=== PATIENT | female | born 1975 | race Caucasian/White ===

== ENCOUNTER 2022-02-10 09:52 | Outpatient (CLI) | payer OTHER, SELFPAY ==
[2022-02-10 13:50] LABS: Chloride* 104 mmol/L (96-114); Potassium* 4.3 mmol/L (3.6-5.1); Sodium* 138 mmol/L (135-149)
[2022-02-10 13:52] LABS: Creatinine* 0.7 mg/dL (0.5-1.5); Estimated Glomerular Filt Rate 107.95
[2022-02-10 13:53] LABS: Blood Urea Nitrogen* 15 mg/dL (5-24); Calcium* 8.9 mg/dL (8.4-10.6); Carbon Dioxide* 28 mmol/L (20-32); Glucose* 94 mg/dL (60-115)
== END 2022-02-10 09:53 | disposition home or self-care (01) ==
LOC: LKVREF 09:52
PROVIDERS: PCP Emergency Medicine; Visit Provider Emergency Medicine
DX: I10 Essential (primary) hypertension (principal); E78.5 Hyperlipidemia, unspecified; F32.A Depression, unspecified; F41.9 Anxiety disorder, unspecified
CPT/HCPCS: 80048

== ENCOUNTER 2022-05-10 09:30 | Outpatient (CLI) | payer OTHER, SELFPAY ==
[2022-05-10 13:46] LABS: Chloride* 103 mmol/L (96-114); Potassium* 4.8 mmol/L (3.6-5.1); Sodium* 138 mmol/L (135-149)
[2022-05-10 13:48] LABS: Cholesterol* 155 mg/dL (90-199)
[2022-05-10 13:49] LABS: Blood Urea Nitrogen* 13 mg/dL (5-24); Calcium* 9.2 mg/dL (8.4-10.6); Carbon Dioxide* 27 mmol/L (20-32); Creatinine* 0.7 mg/dL (0.5-1.5); Estimated Glomerular Filt Rate 107 ml/min; Glucose* 86 mg/dL (60-115); HDL Cholesterol* 46 mg/dL (>=50); LDL Cholesterol Calculated 92 mg/dL (<100); Triglycerides* 87 mg/dL (40-149)
== END 2022-05-10 09:31 | disposition home or self-care (01) ==
PROVIDERS: PCP Emergency Medicine; Visit Provider Emergency Medicine
DX: I10 Essential (primary) hypertension (principal); E78.5 Hyperlipidemia, unspecified
CPT/HCPCS: 80048; 80061

== ENCOUNTER 2023-03-30 09:09 | Outpatient (CLI) | payer OTHER, SELFPAY | END 2023-03-30 09:10 | disposition home or self-care (01) | LOC: LKVREF 09:09 | PROVIDERS: PCP Emergency Medicine; Visit Provider Emergency Medicine | DX: Z00.00 Encounter for general adult medical examination without abnormal findings (principal); R53.83 Other fatigue; I10 Essential (primary) hypertension | CPT/HCPCS: 84443 ==

== ENCOUNTER 2023-04-27 08:12 | Outpatient (CLI) | payer OTHER, SELFPAY | END 2023-04-27 08:13 | disposition home or self-care (01) | PROVIDERS: PCP Emergency Medicine; Visit Provider Emergency Medicine | DX: E78.5 Hyperlipidemia, unspecified (principal); I10 Essential (primary) hypertension; R79.89 Other specified abnormal findings of blood chemistry; R03.0 Elevated blood-pressure reading, without diagnosis of hypertension; R53.83 Other fatigue | CPT/HCPCS: 80048; 80053; 80061; 82306 ==

== ENCOUNTER 2023-05-03 13:53 | Outpatient (CLI) | payer OTHER, SELFPAY ==
--- NOTE | 2023-05-03 14:00 | CRLHL7_ITS ---
For Patients: As a result of the Century Cures Act, medical imaging exams and procedure reports are released immediately into your electronic medical record. You may view this report before your referring provider. If you have questions, please contact your health care provider. BILATERAL SCREENING MAMMOGRAM WITH COMPUTER-AIDED DETECTION TECHNIQUE: CC and MLO views were obtained. These mammographic images have been obtained using full-field digital technique. These mammographic images were interpreted with the benefit of computer-aided detection. COMPARISON FILM: 10/05/21, 05/01/19, 06/17/17. FINDINGS: There are scattered areas of fibroglandular density IMPRESSION: There is no radiographic evidence for malignancy. ASSESSMENT: BI-RADS Category 1: Negative RECOMMENDATION: Routine screening mammogram in 1 year. A lay language report of this examination will be provided to the patient. Bobby Eduardo M.D. Diagnostic Radiologist [email or web address] ALIDA/Dictated by: Bobby Eduardo MD @ 05/04/2023 10:10:00 AM (Electronically Signed)
== END 2023-05-03 13:54 | disposition home or self-care (01) ==
LOC: MAMMO 13:54
PROVIDERS: PCP Emergency Medicine; Visit Provider Emergency Medicine
DX: Z12.31 Encounter for screening mammogram for malignant neoplasm of breast (principal)
CPT/HCPCS: 77063; 77067

== ENCOUNTER 2023-07-28 09:59 | Outpatient (CLI) | payer OTHER, SELFPAY | END 2023-07-28 10:00 | disposition home or self-care (01) | LOC: NFLDREF 07-29 07:03 | PROVIDERS: PCP Emergency Medicine; Referring Provider Emergency Medicine; Visit Provider Emergency Medicine | DX: E78.5 Hyperlipidemia, unspecified (principal) | CPT/HCPCS: 80053 ==

== ENCOUNTER 2024-04-24 15:21 | Outpatient (CLI) | payer OTHER, SELFPAY | END 2024-04-24 15:22 | disposition home or self-care (01) | LOC: NFLDREF 04-28 18:49 | PROVIDERS: PCP Emergency Medicine; Referring Provider Emergency Medicine; Visit Provider Emergency Medicine | DX: I10 Essential (primary) hypertension (principal) | CPT/HCPCS: 80048 ==

== ENCOUNTER 2024-05-14 08:49 | Outpatient (CLI) | payer OTHER, SELFPAY ==
--- NOTE | 2024-05-14 10:09 | W.ANESCHARGE ---
Anesthesia Charges Start Date/Time Anesthesia Start Date: 05/14/24 Anesthesia Start Time: 10:09 Stop Date/Time Anesthesia Stop Date: 05/14/24 Anesthesia Stop Time: 10:44
--- NOTE | 2024-05-14 10:47 | W.ANESCHARGE ---
Anesthesia Charges Start Date/Time Anesthesia Start Date: 05/14/24 Anesthesia Start Time: 10:09 Stop Date/Time Anesthesia Stop Date: 05/14/24 Anesthesia Stop Time: 10:44
== END 2024-05-14 08:50 | disposition home or self-care (01) ==
LOC: OP CLINIC 08:51
PROVIDERS: PCP Emergency Medicine; Visit Provider Surgery
DX: Z12.11 Encounter for screening for malignant neoplasm of colon (principal); D12.3 Benign neoplasm of transverse colon; D12.8 Benign neoplasm of rectum; Z86.0100 Personal history of colon polyps, unspecified; Z86.0101 Personal history of adenomatous and serrated colon polyps
CPT/HCPCS: 00811; 45385; 88305; J2704

== ENCOUNTER 2024-05-24 12:57 | Emergency (ER) | payer OTHER, SELFPAY ==
[2024-05-24 13:00] VITALS: BP 124/79; PULSE 53; RESP 18; TEMP 36.1; O2SAT 100; BMI 31.8
--- NOTE | 2024-05-24 13:28 | ED_ITS ---
HPI - General Adult General Date Seen: 05/24/24 Chief complaint: Shoulder Injury/Pain Stated complaint: fell at work, right arm injury Time Seen by Provider: 05/24/24 13:27 History of Present Illness HPI narrative: This is a pleasant 49-year-old female presenting to the ER today for evaluation of a work related right shoulder/arm injury. She has a past medical history of hypertension, dyslipidemia, depression, tobacco use. She is not on any anticoagulant. She was at work today in the bathroom and slipped on a wet floor. She fell and tried to catch herself. She reached out with her right arm and tried to grab onto a cabinet. Her right arm held her up until it could anymore. She felt a pop in her shoulder and felt her arm bone seem to move upward. She fell to the floor. She also scraped her right knee when she fell but does not think it is broken. She has been able to bend and straighten has been able walk on her knee right knee without any pain. She did not hit her head. No loss of consciousness. No neck Pain. She is having significant pain in her right shoulder does not able move her arm because of the discomfort. No numbness or tingling in her right arm. No other injury. No chest pain or back pain. No left upper extremity injury. Hips are not injured. Related Data Home Medications ?Medication ?Instructions ?Recorded ?Confirmed cholecalciferol (vitamin D3) 25 5,000 unit PO DAILY 03/30/23 05/24/24 mcg (1,000 unit) tablet Previous Rx's ?Medication ?Instructions ?Recorded rosuvastatin 20 mg tablet 20 mg PO DAILY #90 tabs 03/30/23 sertraline 100 mg tablet 150 mg (1.5 x 100 mg) PO DAILY 04/27/23 #135 tabs losartan 50 mg tablet 50 mg PO QDAY #90 tabs 04/24/24 valacyclovir 500 mg tablet 500 mg PO QDAY #90 ea 05/04/24 hydrocodone 5 mg-acetaminophen 325 1 - 2 tab PO Q4-6H PRN pain #20 05/24/24 mg tablet tabs ondansetron HCl 4 mg tablet 4 mg PO TID PRN nausea and 05/24/24 vomiting #10 tabs Allergies Allergy/AdvReac Type Severity Reaction Status Date / Time bupropion Allergy Severe Suicidal Verified 05/24/24 13:06 thoughts [facility] Medical History (Updated 05/24/24 @ 14:56 by Lucas Cardenas MD) Pre-op exam ?Z01.818 - Encounter for other preprocedural examination (ICD-10) Atypical mole ?D22.9 - Melanocytic nevi, unspecified (ICD-10) Hyperkalemia ?E87.5 - Hyperkalemia (ICD-10) Snoring ?R06.83 - Snoring (ICD-10) Lesion of face ?L98.9 - Disorder of the skin and subcutaneous tissue, unspecified (ICD-10) Noncompliance w/medication treatment due to intermit use of medication ?Z91.148 - Patient's other noncompliance with medication regimen for other reason (ICD-10) Fatigue ?R53.83 - Other fatigue (ICD-10) Encounter for preventive health examination ?Z00.00 - Encounter for general adult medical examination without abnormal findings (ICD-10) Family History (Updated 03/30/23 @ 08:54 by Toya Kc MD) Paternal Grandmother Colon cancer Father High blood pressure Social History (Updated 02/09/22 @ 08:26 by Sukhi Roach) Narrative: Occasional cigarette smoker Smoking Status: Current some day smoker How often do you have a drink containing alcohol: 2-4 times a month AUDIT-C Alcohol total score: 2 Non-prescribed substance use: denies use Little interest or pleasure in doing things: several days Feeling down, depressed, or hopeless: several days Exam Narrative: Exam Narrative: Constitutional: Appears well-developed and well-nourished. Alert. Conversant but uncomfortable. Non toxic. HENT: Head: Atraumatic. No depressed skull fracture, Raccoon Eyes, Reed's sign. Face normal. Nose: Nose normal. Mouth/Throat: Oral mucosa is clear and moist. no trismus. Pharynx normal. Tonsils symmetric. No tonsillar enlargement, erythema, or exudate. Eyes: Conjunctivae normal. EOM normal. Pupils equal, round, and reactive to light. No scleral icterus. Neck: Normal range of motion. Neck supple. No tracheal deviation present. Cardiovascular: Normal rate, regular rhythm. No gallop. No friction rub. No murmur heard. Symmetric radial artery pulses Pulmonary/Chest: Effort normal. No stridor. No respiratory distress. No wheezes. No rales. No rhonchi . No tenderness. Abdominal: Soft. Bowel sounds normal. No distension. No mass. No tenderness. No rebound. No guarding. Musculoskeletal: RUE: Very tender diffusely on the right shoulder. Possible fullness or swelling around the humeral head or possible anterior glenohumeral joint dislocation. Difficult to discern by clinical exam alone. Also tender over the distal clavicle without any obvious deformity or crepitus there. Humeral shaft, biceps, triceps, distal humerus are nontender. Elbow nontender. Range of motion of the elbow is limited by shoulder pain. Forearm, wrist, hand, fingers, thumb are nontender. Intact axillary, radial, median, ulnar nerve sensory function. Axillary motor testing is limited by her shoulder pain. LUE: Normal range of motion. No tenderness. No deformity RLE: Normal range of motion. No edema. No tenderness. No deformity. Superficial 2 cm abrasion over the right anterior distal knee. No underlying bony tenderness. Patient does not think her knee is broken. LLE: Normal range of motion. No edema. No tenderness. No deformity Neurological: Alert and oriented to person, place, and time. Normal strength. CN II-VII intact. No sensory deficit. GCS eye subscore is 4. GCS verbal subscore is 5. GCS motor subscore is 6. Normal coordination Skin: Skin is warm and dry. No rash noted. No pallor. Normal capillary refill. Psychiatric: Normal mood. Normal affect. Const: Vital Signs, click to edit/add: Vital Signs - 24 hr 05/24/24 13:00 05/24/24 14:17 05/24/24 14:30 Temperature 97 F L Pulse Rate 56 L 52 L Pulse Rate [Right Pulse Oximeter] 53 L Respiratory Rate 18 Blood Pressure [Le ft Upper Arm] 124/79 Pulse Oximetry 100 96 92 Oxygen Delivery Me thod Room Air 05/24/24 14:45 05/24/24 15:00 Temperature Pulse Rate 50 L 53 L Pulse Rate [Right Pulse Oximeter] Respiratory Rate Blood Pressure [Le ft Upper Arm] Pulse Oximetry 94 97 Oxygen Delivery Me thod Course Vital Signs Vital signs: Initial Vital Signs Temperature 97 F L 05/24/24 13:00 Temperature Source Temporal Artery Scan 05/24/24 13:00 Pulse Rate 53 L 05/24/24 13:00 Pulse Rhythm Regular 05/24/24 13:00 Pulse Strength 3+ Normal 05/24/24 13:00 Respiratory Rate 18 05/24/24 13:00 Blood Pressure 124/79 05/24/24 13:00 Blood Pressure Mean 94 05/24/24 13:00 Blood Pressure Position Sitting 05/24/24 13:00 Pulse Oximetry 100 05/24/24 13:00 Oxygen Delivery Method Room Air 05/24/24 13:00 Vital Signs Temperature 97 F L 05/24/24 13:00 Pulse Rate 53 L 05/24/24 13:00 Respiratory Rate 18 05/24/24 13:00 Blood Pressure 124/79 05/24/24 13:00 Pulse Oximetry 100 05/24/24 13:00 Oxygen Delivery Method Room Air 05/24/24 13:00 Temperature 97 F L 05/24/24 13:00 Pulse Rate 53 L 05/24/24 15:00 Respiratory Rate 18 05/24/24 13:00 Blood Pressure 124/79 05/24/24 13:00 Pulse Oximetry 97 05/24/24 15:00 Oxygen Delivery Method Room Air 05/24/24 13:00 Medications Administered Medications: Discontinued Medications Generic Name Dose Route Start Last Admin Trade Name Freq PRN Reason Stop Dose Admin Hydromorphone HCl 1 mg 05/24/24 13:35 05/24/24 14:08 Hydromorphone 0.5 Mg/0.5 Ml Inj IM 05/24/24 13:36 1 mg ONCE ONE Administration Ondansetron HCl 4 mg 05/24/24 13:35 05/24/24 14:07 Ondansetron 2 Mg/Ml Inj IM 05/24/24 13:36 4 mg ONCE ONE Administration Medical Decision Making MDM Narrative Medical decision making narrative: 49-year-old female presenting to the ER today with her [id number] for evaluation of severe right shoulder pain after she slipped and fell on a wet bathroom floor at work. She did injure her right shoulder but did not hit her head or injure her neck. At this point I do not think she needs head or C-spine imaging. No evidence for torso or abdominal injury. She has a tiny abrasion on her right anterior knee but no evidence for fracture of her lower extremities and would not have come to the ER if her knee abrasion were her only injury from this fall. Differential for her right shoulder injury includes proximal humerus fracture, glenohumeral joint dislocation, glenoid fossa fracture, AC joint injury, distal clavicle fracture, among others. X-rays are obtained and do reveal evidence for a nondisplaced fracture through the proximal humerus, specifically through the tuberosity of the humerus. Fortunately she is neurovascularly intact. Pain is tolerable E controlled after intramuscular Dilaudid given here in the ER Patient is placed into a sling to prescription for [place] that she can use as needed at home. Zofran for opiate induced nausea. Reviewed opiate precautions. She will follow-up with orthopedics for recheck within the next 3-5 days for re- evaluation. Discussed sling during the day, gentle range of motion to avoid frozen shoulder. Discussed fracture care and ice, elevation, rest. Patient understands the need for or patient follow-up and the anticipated course that will take a couple of months to heal and likely will require therapy. Hopefully can avoid surgery Precautions for return to the ER reviewed Imaging Data xr right shoulder: Attestation: I have reviewed the pertinent imaging results. My impression: Suspect fracture through the greater tuberosity. No obvious displacement. No glenohumeral joint dislocation. Radiologist's impression: IMPRESSION: Nondisplaced fracture of the greater tuberosity of the right humerus. Discharge Plan Discharge Clinical Impression: Closed fracture of greater tuberosity of humerus Patient Disposition: Home, Self-Care Condition: Stable Instructions: Proximal Humerus Fracture (ED) Additional Instructions: As we discussed, your x-ray shows a fracture through the top end of her humerus bone in your right shoulder. To manage her pain, use ice for 15 minutes every 3-4 hours on your shoulder. Keep your arm in the sling when you are up and around. However, it is important to take the sling off 1 or 2 times per day and perform gentle, small motions with her shoulder. This helps prevent shoulder stiffness and development of ?frozen shoulder. ? You can use [id number]-[id number] medications such as Tylenol or ibuprofen for pain control. If you have pain uncontrolled by those meds, use the prescription pain killers (hydrocodone). Be careful with hydrocodone because it does have side effects-dizziness, drowsiness, constipation, and can be addictive. Do not drive for 6 hours after taking hydrocodone. It is very important for you to follow-up with orthopedics for recheck next week. You can call the [facility] [phone] to arrange an ER follow-up visit for next Tuesday or Tuesday. If you have any concerns especially uncontrolled pain, numbness or weakness down your arm, or any other problems, come back to the emergency room right away. Prescriptions: New ondansetron HCl 4 mg tablet 4 mg PO TID PRN (Reason: nausea and vomiting) Qty: 10 0RF hydrocodone-acetaminophen 5-325 mg tablet 1 - 2 tab PO Q4-6H PRN (Reason: pain) Qty: 20 0RF No Action sertraline 100 mg tablet 150 mg PO DAILY Qty: 135 2RF cholecalciferol (vitamin D3) 25 mcg (1,000 unit) tablet 5,000 unit PO DAILY Rx Instructions: 5000 iu each tab takes 1 tab in the summer rosuvastatin 20 mg tablet 20 mg PO DAILY Qty: 90 3RF losartan 50 mg tablet 50 mg PO QDAY Qty: 90 3RF valacyclovir 500 mg tablet 500 mg PO QDAY Qty: 90 0RF Follow Up/Referrals: Toya Kc MD [Primary Care Provider] - Stand Alone Forms: ReviewPro Info Instructions
--- NOTE | 2024-05-24 13:35 | CRLHL7_ITS ---
For Patients: As a result of the Cures Act, medical imaging exams and procedure reports are released immediately into your electronic medical record. You may view this report before your referring provider. If you have questions, please contact your health care provider. INDICATION: Posttraumatic pain. COMPARISON: None available. TECHNIQUE: Views: 3 FINDINGS: Mineralization: Normal. Alignment: Normal. Bones and Joints: Nondisplaced fracture of the greater tuberosity of the right humerus. Soft Tissues: Unremarkable. IMPRESSION: Nondisplaced fracture of the greater tuberosity of the right humerus. Dictated by Ervin Carmona MD @ 05/24/2024 2:05:32 PM (Electronically Signed)
[2024-05-24] MEDS: ONDANSETRON 2 MG/ML inj 4 MG IM (14:07)
[2024-05-24] MEDS: HYDROmorphone 0.5 mg/0.5 ml inj 1 MG IM (14:08)
[2024-05-24 14:17] VITALS: PULSE 56; O2SAT 96
[2024-05-24 14:30] VITALS: PULSE 52; O2SAT 92
[2024-05-24 14:45] VITALS: PULSE 50; O2SAT 94
[2024-05-24 15:00] VITALS: PULSE 53; O2SAT 97
== END 2024-05-24 15:20 | disposition home or self-care (01) ==
PROVIDERS: Emergency Provider Emergency Medicine; PCP Emergency Medicine
DX: S42.251A Displaced fracture of greater tuberosity of right humerus, initial encounter for closed fracture (principal); W01.0XXA Fall on same level from slipping, tripping and stumbling without subsequent striking against object, initial encounter
CPT/HCPCS: 73030; 94761; 96372; 99282; 99284; J1171; J2405

== ENCOUNTER 2024-08-16 09:13 | Outpatient (CLI) | payer OTHER, SELFPAY | END 2024-08-16 09:14 | disposition home or self-care (01) | LOC: NFLDREF 08-29 04:11 | PROVIDERS: PCP Emergency Medicine; Referring Provider Emergency Medicine; Visit Provider Emergency Medicine | DX: R79.89 Other specified abnormal findings of blood chemistry (principal); E78.2 Mixed hyperlipidemia; I10 Essential (primary) hypertension | CPT/HCPCS: 80048; 80061; 82306 ==

== ENCOUNTER 2024-09-10 09:00 | Outpatient (RCR) | payer OTHER, SELFPAY ==
--- NOTE | 2024-06-25 10:13 | PT.OPE ---
PT [place] Out[facility] Eval PT [facility] Outpatient Eval Start: 06/25/24 08:50 Freq: Status: Active Protocol: Document 06/25/24 10:12 LISBET (Rec: 06/25/24 10:13 LISBET [id number]) E-signed By Jason Torres PT Physical Therapy Outpatient Evaluation Insurance Information Recert Due Date 09/23/24 Insurance Name [employer] [employer] Medical Diagnosis FX of Humerus Treating Diagnosis R shoulder pain Imaging Report Information X-Ray: 06/19/24 [place], Y-view and Axillary views of the right shoulder were obtained today from [facility], were ordered and reviewed by me, were compared to images obtained on 06/05/2024, and show relatively stable appearing greater tuberosity fracture. Very subtle superior migration to the greater tuberosity fragment, but the fracture lines are less distinct today consistent with some early healing. Glenohumeral joint remains concentrically reduced otherwise. Referring Arnie Pendleton MD Subjective Preferred Name Chinyere Subjective Pt presents s/p R humerus fracture. This is a Workman's Comp visit. Pt reports she slipped in the bathroom at work. Pt reports that when she fell, there was a cabinet to her R side. Tried to use the cabinet to brace herself and felt/heard a pop and had immediate severe pain of the R shoulder. Pt attended the ED and visited with Dr. Metzger in orthopedics the following week. Pt has discontinued use of sling about 1 week ago. Pain has been a bit higher on average since she discontinued sling. Currently using IBP for pain control. Pt reports that her sleep has been poor. She prefers to sleep on her stomach and this is challenging due to her pain. 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 [employer] Precautions Therapy Limitations/Systems Review Not Limited Objective Other/Pertinent Objective Cervical ROM Extension - 54 Flexion - 45 R/L Side Bend - 37/37 R/L Rotation - 61/71 R Shoulder AROM Flexion/Abduction/IR/ER - 108/ 81/PSIS/66 L Shoulder AROM Flexion/Abduction/IR/ER - 165/ 165/T7/88 R Shoulder Strength - DNT L Shoulder Strength Flexion - 5/5 MMT Abduction - 5/5 MMT IR (neutral) - 5/5 MMT IR (90) - 5/5 MMT ER (neutral) - 5/5 MMT ER (90) - 5/5 MMT Empty Can - 5/5 MMT Palpation: pt reports tenderness/pain with palpation to R UT, levator, thoracic paraspinals, pec major Functional Test Performed & Score QuickDASH: 61% disability -Work Module: 50% disability Assessment Assessment/Impression Chinyere is a very pleasant 49 year old female who presents to our clinic for evaluation and treatment of R shoulder pain following a R proximal humerus fracture on 05/24/24. Pts injury occurred when she slipped on a wet bathroom floor while at work. She tried to brace herself and felt a pop in her shoulder that was accompanied by immediate pain. This is a Workman's Comp visit. At this time, Chinyere's shoulder appears to be progressing quite nicely and passively demonstrates full ROM with exception of IR behind her back. Pt demonstrated an increase of 40 degrees R shoulder flexion from beginning to end of today 's evaluation. I would imagine pt will progress quickly over the coming weeks. We will plan to initiate stretching as tolerated followed by strengthening as tolerated by pt. The nature of the pts condition was explained and all questions were answered to the pts satisfaction. Skilled PT services are medically necessary to address deficits and return patient to highest level of function. Recommend physical therapy sessions 1/ week for 4-6 weeks. Pt agrees with this plan. Printout of HEP was given for I completion and pt gives verbal understanding of each exercise . Primary Functional Limitations Lifting, reaching, carrying Plan of Care Rehabilitation Potential Excellent Physical Therapy Goals STG - To be completed in 2-3 weeks: 1. Pt will demonstrate improved shoulder flexion and abduction AROM by 10+ degrees so that they may reach for cans of soup on top shelf in pantry. 2. Pt will report reduction in shoulder pain by factor of 2 so that they may sleep without waking due to pain while shifting position in the night . LTG - To be completed in 4-6 weeks: 1. Pt to be I with HEP so that they may I manage progression of symptoms. 2. Pt will report ability to lay on R shoulder in bed without increase in pain so that they may sleep in modified preferred position to achieve better night's sleep. 3. Pt will demo full and pain free shoulder ROM and strength so that they may return to recreational exercise with their friends. Treatment Plan/Direct Interventions Dry Needling,Electrical Stimulation,Heat,Ice/Cold/ Vasopneumatic,Joint Mobilization,Manual Therapy, Neuromuscular Re-ed,Self-Care/ Home Management,Therapeutic Activities,Therapeutic Exercises,Ultrasound Frequency/Duration 1/week for 4-6 weeks Patient Will Be Discharged From Therapy Completion of LTG(s),Skills Plateau,Independent w/HEP, Independently Progressing Evaluation Billing Untimed Code Treatment Minutes 40 PT Eval No Charge No Complexity Low Certification Information Initial Certification Date 06/25/24 Ending Certification Date 09/23/24 Provider Signature Required Yes Provider Signature Shows Agreement With POC & Medical Necessity Physician NPI Number Write NPI# Here Physician Comment/Change : Physician Signature & Date Requested Please Sign/Date Here
--- OUTSIDE RECORDS SUMMARY | 2024-08-03 07:43 | XMS_ITS | Clinical Summary ---
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 Name Role Phone Unavailable Primary Care Provider Unavailabl e Social History Tobacco Use Types Packs/Day Years Used Date Smoking Tobacco: Never Assessed Comments Unknown Sex and Gender Information Value Date Recorded Sex Assigned at Not on file Legal Sex Female 4:18 PM CDT Gender Identity Not on file Sexual Orientation Not on file Plan of Treatment Health Maintenance Due Date Last Done Comments Tdap 1986 Depression screening for age 12+ 1987 HIV for age 15-65 1990 BMI (ht and wt on same day) for age 18+ 1993 Hepatitis C screening for ag e 18-79 1993 Tetanus booster 1995 Colonoscopy through age 75 02/17/2020 Lipids for age 45-75 02/17/2020 Mammogram for age 45-75 02/17/2020 Pap test for age 21-65 03/26/2022 , 03/26/2019 COVID-19 vaccine series (2023- season) 2024 Influenza for age 9-49 04/01/2024 Pneumococcal series for age 6-49 Aged Out No longer eligible b ased on patient's age to complete this topic Procedures Procedure Name Priority Date/Time Associated Diagnosis Comments AMBULATORY CARE THIN PREP PAP SCREEN IMAGED Routine 03/26/2019 12:00 PM CDT from Last 3 Months or Most Recently Relevant to Health Maintenance Results * AMBULATORY CARE THIN PREP PAP SCREEN IMAGED (03/26/2019 12:00 PM CDT) Case Report Gynecologic Cytology Report Case: [id number] Authorizing Provider: Nury Gallegos PA-C Collected: 03/26/2019 1200 Ordering Location: [facility] Received: 03/27/2019 0821 First Screen: Leeanna Vazquez Specimen: AMBULATORY CARE ThinPrep Vial Screening, Cervical/Vaginal 04/04/2019 2:07 PM CDT [facility] INTERPRETATION/ RESULT NEGATIVE FOR INTRAEPITHELIAL LESION OR MALIGNANCY (NIL) (none) 04/04/2019 2:07 PM CDT [facility] IMEN ADEQUACY Satisfactory for evaluation Endocervical component present 04/04/2019 2:07 PM CDT [facility] HPV REQUEST HPV and PAP 04/04/2019 2:07 PM CDT [facility] Date of LMP 03/15/2019 04/04/2019 2:07 PM CDT [facility] Last Pap Date 04/04/2019 2:07 PM CDT [facility] Comment:11/2012 Last Pap Result NIL 9 2:07 PM CDT [facility] Automated Review Successful 04/04/2019 2:07 PM CDT [facility] Comment:Specimen processed s uccessfully by automated clinic receptionist device, ThinPrep Imaging System, [facility] ANCILLARY TESTING AMBULATORY CARE HPV Ordered, Please see separate report 04/04/2019 2:07 PM CDT [facility] Note The pap test is a screening technique, not a diagnostic procedure. It is used primarily to screen for squamous cancers and precursor lesions. Published studies have shown that it is subject to both false negative and false positive results. The pap test should not be used as the sole means to diagnose or exclude pre-malignant and malignant lesions. Cytology is screened and interpreted at [facility] - [address], [place] [address] and [facility] - [address] [place] [address]; [place] [address] and - [address]; [place] [address] and [facility] [address]; [place] [address] 04/04/2019 2:07 PM CDT [facility] Other (Cervical/Vagina l) 03/26/2019 12:00 PM CDT 03/27/2019 8:21 AM CDT october [place] [facility] PATHOLOGY/CYTOLOGY Final R esult [facility] [address] [place] [address], [place] from Last 3 Months or Most Recently Relevant to Health Maintenance Insurance [employer] CHOICE
--- OUTSIDE RECORDS SUMMARY | 2024-08-03 07:43 | XMS_ITS | Clinical Summary ---
Author Organization [facility] Address [address] [place] [address] Care Team Providers Care Qual Field Manager Name Role Phone Needs Pcp, Assignment Primary Care Provider [phone] Source Comments You are receiving this document as you are listed as the primary care provider,follow-up provider, or the patient has been referred to you for consultation.This is in compliance with the Medicare andMedicaid EHR Incentive Program,which states Providers who transition their patient to another setting of careor provider of care or refers their patient to another provider of care shouldprovide summary care record for each transition of care or referral. [facility] Allerg[facility] Active Allergy Reactions Criticality Noted Date Comments Levothyroxine Rash 04/11/2015 Medications Medication Sig Dispensed Refills Start Date End Date Status FLUoxetine (AKA PROZAC) 10 MG capsule Take 10 mg by mouth daily (every 24 hours). Indications: DEPRESSION 04/11/2015 Active atovaquone-proguani l (MALARONE) 250-100 MG tabletIndications:E ncounter for counseling for travel Take 1 tab by mouth daily. Start 2 days before malarial mosquito exposure, daily while there and continue for 7 days after leaving. 25 Tablet 03/21/2023 Active losartan (COZAAR) 25 MG tablet Take 1 Tablet (25 mg) by mouth daily. 02/15/2023 Active rosuvastatin (CRESTOR) 20 MG tablet Take 1 Tablet (20 mg) by mouth daily. 10/28/2022 Active sertraline (ZOLOFT) 100 MG tablet Take 1.5 Tablets (150 mg) by mouth daily. 03/18/2023 Active GABAPENTIN OR Active valACYclovir (VALTREX) 500 MG tablet Take 1 Tablet (500 mg) by mouth two times a day. Active Immunizations Name Administration Dates Next Due Flu Vac (3+ yrs) 05/03/2011 Flu Vac Preserv Free (3+yrs) 05/08/2016,05/22/20 14 [id number] 06/16/2009 HepA-HepB (TWINRIX, 18+ yrs) 02/09/2016,05/21/20 15,04/11/2015 IPV (Polio) 03/21/2023 Influenza (Flucelvax) 05/09/2020 Influenza IIV4 (Quadrivalent ) 0.5mL (59344) 06/23/2021,05/17/2019,06/12/2018,2014 Influenza LAIV (Nasal, 2-49 yrs) 05/16/2013 Influenza, Unspecified Formulation 05/22/2014,,04/27/2010 MMR 04/11/2015 Moderna Monovalent 12+ 09/17/2021,08/20/2021 Positive Rubella Titer 03/31/2011 TDAP (ADACEL) 08/17/2012 Td, Preservative Free 09/02/2008 Tdap 03/21/2023 Typhoid (Typhim Vi, IM) 03/21/2023,04/11/2015 Social History Tobacco Use Types Packs/Day Years Used Date Smoking Tobacco: Never Assessed Sex and Gender Information Value Date Recorded Sex Assigned at Not on file Gender Identity Not on file Sexual Orientation Not on file Plan of Treatment Health Maintenance Due Date Last Done Comments Cervical Cancer Screening Due 1975 Colon Cancer Screening Plan Due 1975 Hep C Screening (Preventive Services) 1975 Mammogram 1975 HIV Screening (Preventive Services) 1991 Adult Preventive Visit 1993 Cholesterol 02/17/2020 COVID-19 Vaccine (2023- season) 2024 09/17/2021, 08/20/2021 Influenza (#1) 2024 06/23/2021, 10/04/2020, 05/17/2019, Additional history exists Zoster/Shingles (1 of 2) 2025 DTaP/Tdap/Td (3 - Tdap) 03/21/2033 03/21/20 23, 08/17/2012, 09/02/2008 HepA Completed 02/09/2016, 05/02, 04/11/2015 HepB Completed 02/09/2016, 05/02, 04/11/2015 IPV (Polio) Aged Out 03/21/2023 No longer eligi ble based on patient's age to complete this topic Hib Aged Out No longer eligi ble based on patient's age to complete this topic MCV4 Aged Out No longer eligi ble based on patient's age to complete this topic Pneumococcal Aged Out No longer eligi ble based on patient's age to complete this topic Care Teams Qual Field Manager Relationship Specialty Start Date End Date Needs Pcp, [facility], [place] [id number] PCP - General 03/28/15
--- OUTSIDE RECORDS SUMMARY | 2024-08-03 07:43 | XMS_ITS | Continuity of Care Document ---
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
--- NOTE | 2024-09-10 10:01 | PT.OPDN ---
[facility] Daily [facility] Daily Note Start: 06/25/24 08:50 Freq: Status: Active Protocol: Document 09/10/24 08:55 CJT (Rec: 09/10/24 10:01 CJT [email or web address]) E-signed By Jason Torres, PT PT OP Daily Progress Note Visit Information Note Type Recert/Progress Note Visit Number 8 Insurance Authorized Visits TBD Physician Authorized Visits eval and treat Insurance Information Recert Due Date 09/23/24 Insurance Name Oliva Lopez Medical Diagnosis FX of Humerus Treating Diagnosis R shoulder pain Imaging Report Information X-Ray: 06/19/24 Grashey, Y-view and Axillary views of the right shoulder were obtained today from [facility], were ordered and reviewed by me, were compared to images obtained on 06/05/2024, and show relatively stable appearing greater tuberosity fracture. Very subtle superior migration to the greater tuberosity fragment, but the fracture lines are less distinct today consistent with some early healing. Glenohumeral joint remains concentrically reduced otherwise. Referring Arnie Pendleton MD Subjective Preferred Name Chinyere Case Shoulder has been bothering a bit more lately. Has not been good with exericses at home or at work. Notices most Pain Comments 11/08 Date of Last Physician Visit 06/19/24 Home Exercise Home Exercise Comments Access Code: [email or web address] URL: [email or web address] Date: 06/25/2024 Prepared by: Jason Torres Exercises - Seated Scapular Retraction - 2 x daily - 7 x weekly - 2 sets - 10-20 reps - 5 seconds hold - Sidelying Shoulder External Rotation - 1 x daily - 7 x weekly - 2 sets - 10-20 reps - Supine Shoulder Flexion AAROM with Hands Clasped - 1 x daily - 7 x weekly - 2 sets - 10-20 reps - Shoulder Flexion Overhead with Dowel - 1 x daily - 7 x weekly - 2 sets - 10 reps - Standing Shoulder Abduction AAROM with Dowel - 1 x daily - 7 x weekly - 2 sets - 10-20 reps - Standing Shoulder External Rotation AAROM with Dowel - 1 x daily - 7 x weekly - 2 sets - 10-20 reps - Circular Shoulder Pendulum with Table Support - 1 x daily - 7 x weekly - 3 sets - 10 reps - Seated Cervical Sidebending Stretch - 1-2 x daily - 7 x weekly - 1 sets - 30 seconds hold - Seated Shoulder Flexion AAROM with Victor Hugo Behind - 1- 2 x daily - 7 x weekly - 1-2 sets - 10-20 reps - Standing Upper Trapezius Mobilization with Small Ball Added deltoid isometrics at wall or supine abduction or sidelying abduction to HEP Objective Other/Pertinent Objective R Shoulder AROM Elevation: 165 Abduction: 160 IR: T12 ER: 87 R Shoulder Strength Flexion - 4/5 MMT, limited by pain Abduction - 4/5 MMT, limited by pain IR - 5/5 MMT ER - 4/5 MMT, limited by pain Empty Can - 4/5 MMT, limited by pain L Shoulder Strength Flexion - 5/5 MMT Abduction - 5/5 MMT IR (neutral) - 5/5 MMT IR (90) - 5/5 MMT ER (neutral) - 5/5 MMT ER (90) - 5/5 MMT Empty Can - 5/5 MMT Special testing: empty can, Logan hernandez positive for pain of lateral R shoulder Functional Test Performed & Score QuickDASH: 61% disability -Work Module: 50% disability Patient Instructed in Risks/Benefits Yes Therapeutic Exercise Therapeutic Exercise Minutes (minutes) 22 Therapeutic Exercise: To Restore UBE x L3 5 minutes Functional Status Pulleys into flexion Self shoulder mobilizations with belt in sitting to improve shoulder elevation Passive R shoulder IR and ER stretching 2 x 60 ea Manual Therapy Techniques Manual Therapy Minutes (minutes) 24 Manual Therapy Techniques STM performed to Right levator scapulae, upper trapezius, pec major, long head of the biceps tendon to reduce tissue tension and improve extensibility. Treatment Minutes Timed Code Treatment Minutes 46 Total Treatment Time 46 Billing Units Manual Therapy Units 1 Therapeutic Exercise Units 2 Assessment/Impression Assessment/Impression Chinyere has made fair progress during her time in therapy although appears to have hit a plateau. Pt continues to note pain of the lateral R shoulder with elevation of R arm as well as during working hours with excessive use of her computer mouse. She also has pain at night which has been affecting her sleep. Because pt had a fracture of the greater tubercle of her R humerus, I am concerned for supraspinatus involvement at this time. Pt is showing positive signs of impingement with special testing and strength testing this date. Pts pain is of the lateral aspect of her R deltoid. While pt does have history of fracture, I do think an MRI of the R shoulder at this time would be beneficial to rule out any RTC involvement. Recommend continued PT services to address deficits and return pt to highest level of function. Primary Functional Limitations Lifting, reaching, mousing, sleeping Plan of Care Physical Therapy Goals STG - To be completed in 2-3 weeks: 1. Pt will demonstrate improved shoulder flexion and abduction AROM by 10+ degrees so that they may reach for cans of soup on top shelf in pantry. MET 2. Pt will report reduction in shoulder pain by factor of 2 so that they may sleep without waking due to pain while shifting position in the night . LTG - To be completed in 4-6 weeks: 1. Pt to be I with HEP so that they may I manage progression of symptoms. 2. Pt will report ability to lay on R shoulder in bed without increase in pain so that they may sleep in modified preferred position to achieve better night's sleep. 3. Pt will demo full and pain free shoulder ROM and strength so that they may return to recreational exercise with their friends. Daily Plan of Care Continue per POC Recertification Information Initial Certification Date 06/25/24 Recertification Start Date 09/10/24 Recertification Due Date 12/09/24 Reasons to Continue Skilled Therapy Pt requires continued PT services to address deficits in strength and ROM of R shoulder as well as pain. Rehabilitation Potential Good Continued Plan of Care and Interventions Ther-Ex, manual as needed Provider Signature Shows Agreement With POC & Medical Necessity Physician Comment/Change Comment or Changes Physician NPI Number #
== END 2024-11-28 07:46 | disposition home or self-care (01) ==
PROVIDERS: PCP Emergency Medicine; Visit Provider Orthopaedic Surgery Sports Medicine
DX: S42.254A Nondisplaced fracture of greater tuberosity of right humerus, initial encounter for closed fracture (principal); Z02.6 Encounter for examination for insurance purposes; Z51.89 Encounter for other specified aftercare
CPT/HCPCS: 97110; 97140; 97161

== ENCOUNTER 2024-09-28 07:08 | Outpatient (CLI) | payer OTHER, SELFPAY | END 2024-09-28 07:09 | disposition home or self-care (01) | LOC: MRI 07:09 | PROVIDERS: PCP Emergency Medicine; Visit Provider Orthopaedic Surgery Sports Medicine | DX: M25.511 Pain in right shoulder (principal); S43.431A Superior glenoid labrum lesion of right shoulder, initial encounter; M75.21 Bicipital tendinitis, right shoulder; M75.51 Bursitis of right shoulder; M25.411 Effusion, right shoulder; S49.91XA Unspecified injury of right shoulder and upper arm, initial encounter | CPT/HCPCS: 73221 ==

== ENCOUNTER 2024-11-06 09:00 | Outpatient (CLI) | payer OTHER, SELFPAY ==
[2024-11-08 13:48] LABS: HPV Source Cervical; HPV, High Risk by TMA Not Detected
== END 2024-11-06 09:01 | disposition home or self-care (01) ==
PROVIDERS: PCP Emergency Medicine; Visit Provider Emergency Medicine
DX: Z12.4 Encounter for screening for malignant neoplasm of cervix (principal); Z11.51 Encounter for screening for human papillomavirus (HPV)
CPT/HCPCS: 87624; 87625; 88141; 88142